=== PATIENT | male | born 1945 | race Two or more races ===

== ENCOUNTER 2018-10-08 19:19 | Emergency (ER) | payer OTHER ==
[~2018-10-08] VITALS: Ht 180.3 cm; Wt 83.9 kg
[2018-10-08] MEDS ORDERED: ONDANSETRON IV *ER 4 MG/2 ML VIAL IV ONE (19:30)
[2018-10-08] MEDS ORDERED: DIPHENOXYLATE HCL/ATROP SULF TABLET PO ONE (19:30)
[2018-10-08 19:48] LABS: *OCCULT BLOOD STOOL NEGATIVE (NEGATIVE)
[2018-10-08 19:49] LABS: BASOPHILS # (AUTO) 0.1 K/uL (0.0-8.0); BASOPHILS % (AUTO) 1.3 % (0.0-2.0); EOSINOPHILS # (AUTO) 0.8 K/uL (0.0-0.7); EOSINOPHILS % (AUTO) 11.2 % (0.0-7.0); HEMATOCRIT 39.4 % (36.7-47.1); HEMOGLOBIN 12.7 g/dL (12.5-16.3); LYMPHOCYTES # (AUTO) 1.7 K/uL (20.0-40.0); LYMPHOCYTES % (AUTO) 23.4 % (20.5-51.5); MEAN CORPUSCULAR HEMOGLOBIN 30.2 uug (23.8-33.4); MEAN CORPUSCULAR HGB CONC 32 g/dL (32.5-36.3); MEAN CORPUSCULAR VOLUME 93.9 fL (73.0-96.2); MONOCYTES # (AUTO) 0.7 K/uL (2.0-10.0); MONOCYTES % (AUTO) 9.1 % (0.0-11.0); PLATELET COUNT (AUTO) 127 K/uL (152-348); RED BLOOD CELL COUNT(AUTO) 4.19 MIL/uL (4.06-5.63); WHITE BLOOD COUNT (AUTO) 7.3 K/uL (3.6-10.2)
[2018-10-08] MEDS ORDERED: DIPHENOXYLATE HCL/ATROP SULF TABLET ONE (19:49)
[2018-10-08] MEDS ORDERED: ONDANSETRON 4 MG/2 ML VIAL ONE (19:49)
[2018-10-08 19:57] LABS: CARBON DIOXIDE 29 mmol/L (21-32); CHLORIDE 107 mmol/L (98-107); CREATININE 1.1 mg/dL (0.6-1.3); GLUCOSE 131 mg/dL (74-106); POTASSIUM 4.7 mmol/L (3.5-5.1); UREA NITROGEN, BLOOD 16 mg/dL (7-18)
[2018-10-08 20:04] LABS: ALANINE AMINOTRANSFERASE 29 U/L (16-63); ALKALINE PHOSPHATASE 98 U/L (50-136); ASPARTATE AMINOTRANSFERASE 14 U/L (15-37); BILIRUBIN,DIRECT 0.3 mg/dL (0.0-0.2); BILIRUBIN,TOTAL 0.9 mg/dL (0.2-1.0); LIPASE 237 U/L (73-393); TOTAL PROTEIN, SERUM 7.7 g/dL (6.4-8.2)
[2018-10-08] MEDS ORDERED: CARV6.252 PO (20:10)
[2018-10-08] MEDS ORDERED: METF-442 PO (20:10)
[2018-10-08] MEDS ORDERED: BUSP10TA3 PO (20:10)
[2018-10-08] MEDS ORDERED: FURO40TA5 PO (20:10)
[2018-10-08] MEDS ORDERED: ASPI81TA31 PO (20:10)
[2018-10-08] MEDS ORDERED: LISI10TA5 PO (20:10)
[2018-10-08] MEDS ORDERED: ATOR80TA PO (20:10)
[2018-10-08] MEDS ORDERED: DULO20CA PO (20:10)
[2018-10-08] MEDS ORDERED: MIRT30TA7 PO (20:10)
--- NOTE | 2018-10-08 20:53 | NUR ---
[facility] for transport back to [facility]. ETA 2 hrs @ [id number]. Trip#[id number]
--- NOTE | 2018-10-08 22:01 | NUR ---
Pt is resting comfortably in bed. Pt aware pending transport back to [facility]. Appears in no apparent distress.
--- NOTE | 2018-10-08 23:15 | NUR ---
IV removed. Catheter intact and site benign. Pressure and 4x4 gauze applied to site. No bleeding noted.
--- NOTE | 2018-10-08 23:22 | NUR ---
[facility] here to transport pt back to [facility]. Patient discharged to home in stable conditon. Written and verbal after care instructions given. Patient verbalizes understanding of instructions. No acute distress noted. All belongings with patient. Vital signs stable.
[2018-10-08 23:24] VITALS: BP 141/75
== END 2018-10-08 23:24 | disposition home or self-care (01) ==
LOC: ER 19:23
DX: R19.7 Diarrhea, unspecified (principal); R11.0 Nausea; I10 Essential (primary) hypertension; I25.10 Atherosclerotic heart disease of native coronary artery without angina pectoris; E78.5 Hyperlipidemia, unspecified; I48.91 Unspecified atrial fibrillation; E11.9 Type 2 diabetes mellitus without complications; Z90.49 Acquired absence of other specified parts of digestive tract; Z79.82 Long term (current) use of aspirin; Z79.899 Other long term (current) drug therapy
CPT/HCPCS: 36415; 74176; 80048; 80076; 82270; 83690; 84484; 85025; 85730; 93005; 96374; 99284; J2405; 70030-TC; A4663

== ENCOUNTER 2019-02-12 11:52 | Inpatient (IN) | payer OTHER ==
[~2019-02-12] VITALS: Ht 167.6 cm; Wt 79.8 kg
[~2019-02-12 11:52] MED LIST: ASPI81TA31 PO; ATOR80TA PO; BUSP10TA3 PO; CARV6.252 PO; DULO20CA PO; FURO40TA5 PO; LISI10TA5 PO; METF-442 PO; MIRT30TA7 PO
[2019-02-12] MEDS ORDERED: NEOMY/BACITRA/POLYMYXIN B OINT UD PACKET TP ONE ×2 (12:15→12:21)
[2019-02-12 12:37] LABS: CREATININE 1.2 mg/dL (0.6-1.3); POTASSIUM 3.8 mmol/L (3.5-5.1)
[2019-02-12 12:40] LABS: BASOPHILS # (AUTO) 0.1 K/uL (0.0-8.0); BASOPHILS % (AUTO) 1.3 % (0.0-2.0); EOSINOPHILS # (AUTO) 0.8 K/uL (0.0-0.7); EOSINOPHILS % (AUTO) 11.4 % (0.0-7.0); HEMATOCRIT 35.5 % (36.7-47.1); HEMOGLOBIN 11.5 g/dL (12.5-16.3); LYMPHOCYTES # (AUTO) 1.4 K/uL (20.0-40.0); LYMPHOCYTES % (AUTO) 20.6 % (20.5-51.5); MEAN CORPUSCULAR HEMOGLOBIN 31.9 uug (23.8-33.4); MEAN CORPUSCULAR HGB CONC 32 g/dL (32.5-36.3); MEAN CORPUSCULAR VOLUME 98.9 fL (73.0-96.2); MONOCYTES # (AUTO) 0.9 K/uL (2.0-10.0); MONOCYTES % (AUTO) 12.2 % (0.0-11.0); NEUTROPHILS # (AUTO) 3.8 K/uL (1.8-8.9); NEUTROPHILS % (AUTO) 54.5 % (38.5-71.5); PLATELET COUNT (AUTO) 176 K/uL (152-348); RED BLOOD CELL COUNT(AUTO) 3.59 MIL/uL (4.06-5.63)
[2019-02-12 12:42] LABS: BILIRUBIN,DIRECT 0.1 mg/dL (0.0-0.2); BILIRUBIN,TOTAL 0.5 mg/dL (0.2-1.0)
[2019-02-12] MEDS ORDERED: CYAN-51 PO (12:49)
[2019-02-12] MEDS ORDERED: AMIO200T4 PO (12:49)
[2019-02-12] MEDS ORDERED: NITR0.4T SL (12:49)
[2019-02-12] MEDS ORDERED: ATOR40TA PO (12:49)
[2019-02-12] MEDS ORDERED: CHOL10002 PO (12:49)
[2019-02-12] MEDS ORDERED: ASPIRIN 81 MG TAB.CHEW PO ONE (13:30)
[2019-02-12] MEDS ORDERED: ASPIRIN 81 MG TAB.CHEW ONE (13:31)
[2019-02-12 16:30] VITALS: BP 135/85
[2019-02-12] MEDS ORDERED: MAGNESIUM HYDROXIDE 30 ML LIQUID UDC PO PRN (18:45)
[2019-02-12] MEDS ORDERED: Z GUARD REMEDY PASTE 57 GM TUBE TOP PRN (18:45)
[2019-02-12] MEDS ORDERED: DEXTROSE 50% 50 ML DISP.SYRIN IV PRN (18:45)
[2019-02-12] MEDS ORDERED: ONDANSETRON 4 MG/2 ML VIAL IV PRN (18:45)
[2019-02-12 20:00] VITALS: BP 130/64
[2019-02-12] MEDS: BLOOD SUGAR DIAGNOSTIC 1 EACH STRIP VI SCH (20:48)
[2019-02-12] MEDS: MIRTAZAPINE 15 MG TABLET PO SCH (20:48)
[2019-02-12] MEDS: ATORVASTATIN 40 MG TABLET PO SCH (20:48)
[2019-02-12] MEDS ORDERED: Medication Not On Formulary EA (Mirtazapine 30 MG) PO SCH (21:00)
[2019-02-12 22:16] LABS: *BILIRUBIN,URIN NEGATIVE (NEGATIVE); *BLOOD, URINE NEGATIVE (NEGATIVE); *CLARITY,URINE CLEAR (CLEAR); *COLOR,URINE YELLOW (YELLOW); *KETONES,URINE NEGATIVE (NEGATIVE); *UROBILINOGEN,URINE 0.2 E.U./dl (NORMAL); LEUKOCYTE ESTERASE ,URINE NEGATIVE (NEGATIVE); NITRITE, URINE NEGATIVE (NEGATIVE); PH,URINE 5.5 (5.0-8.0); UGLUCOSE NEGATIVE (NEGATIVE)
[2019-02-12] MEDS: ACETAMINOPHEN 325 MG TABLET PO PRN (22:57)
[2019-02-13] VITALS: BP 138/56
[2019-02-13 04:00] VITALS: BP 113/71
[2019-02-13] MEDS: BLOOD SUGAR DIAGNOSTIC 1 EACH STRIP VI SCH ×4 (06:32→21:10)
[2019-02-13 07:29] LABS: BASOPHILS # (AUTO) 0.1 K/uL (0.0-8.0); EOSINOPHILS % (AUTO) 14.9 % (0.0-7.0); HEMATOCRIT 34.9 % (36.7-47.1); HEMOGLOBIN 11.6 g/dL (12.5-16.3); LYMPHOCYTES # (AUTO) 1.6 K/uL (20.0-40.0); LYMPHOCYTES % (AUTO) 24.6 % (20.5-51.5); MEAN CORPUSCULAR HEMOGLOBIN 32.5 uug (23.8-33.4); MEAN CORPUSCULAR HGB CONC 33 g/dL (32.5-36.3); MEAN CORPUSCULAR VOLUME 98.1 fL (73.0-96.2); MONOCYTES # (AUTO) 0.7 K/uL (2.0-10.0); MONOCYTES % (AUTO) 10.6 % (0.0-11.0); NEUTROPHILS # (AUTO) 3.1 K/uL (1.8-8.9); NEUTROPHILS % (AUTO) 47.9 % (38.5-71.5); PLATELET COUNT (AUTO) 164 K/uL (152-348); RED BLOOD CELL COUNT(AUTO) 3.55 MIL/uL (4.06-5.63); WHITE BLOOD COUNT (AUTO) 6.5 K/uL (3.6-10.2)
[2019-02-13 07:43] LABS: CARBON DIOXIDE 34 mmol/L (21-32); CHLORIDE 108 mmol/L (98-107); CHOLESTEROL 108 mg/dL (<200); CREATININE 1.1 mg/dL (0.6-1.3); GLUCOSE 97 mg/dL (74-106); HDL CHOLESTEROL 24 mg/dL (40-60); MAGNESIUM 1.8 mg/dL (1.8-2.4); PHOSPHOROUS 4.4 mg/dL (2.5-4.9); POTASSIUM 4.7 mmol/L (3.5-5.1); TRIGLYCERIDES 112 MG/DL (30-150); UREA NITROGEN, BLOOD 15 mg/dL (7-18)
[2019-02-13 07:52] LABS: THYROID STIMULATING HORMONE 2.771 mIU/mL (0.358-3.740)
[2019-02-13] MEDS ORDERED: Medication Not On Formulary EA (Metformin Hcl 1,000 MG) PO SCH (09:00)
[2019-02-13] MEDS: AMIODARONE HCL 200 MG TABLET PO SCH ×2 (09:25→18:12)
[2019-02-13] MEDS: DULOXETINE 20 MG CAPSULE.DR PO SCH (09:26)
[2019-02-13] MEDS: busPIRone 10 MG TABLET PO SCH ×2 (09:26→18:08)
[2019-02-13] MEDS: CHOLECALCIFEROL 1,000 UNIT TABLET PO SCH ×2 (09:26→18:07)
[2019-02-13] MEDS: CARVEDILOL 6.25 MG TABLET PO SCH ×2 (09:28→18:08)
[2019-02-13] MEDS: FUROSEMIDE 40 MG TABLET PO SCH (09:28)
[2019-02-13] MEDS: METFORMIN HCL 500 MG TABLET PO SCH ×2 (09:29→18:06)
[2019-02-13] MEDS: CYANOCOBALAMIN 1,000 MCG TABLET PO SCH (09:29)
[2019-02-13 11:05] VITALS: BP 126/77
[2019-02-13] MEDS: INSULIN REGULAR, HUMAN 300 UNIT/3 ML VIAL SQ PRN ×2 (12:39→18:16)
[2019-02-13] MEDS: ACETAMINOPHEN 325 MG TABLET PO PRN (14:03)
[2019-02-13 15:50] VITALS: BP 109/53
[2019-02-13] MEDS: ASPIRIN 81 MG TAB.CHEW PO SCH (18:07)
[2019-02-13 20:00] VITALS: BP 108/55
[2019-02-13] MEDS: ATORVASTATIN 40 MG TABLET PO SCH (21:11)
[2019-02-13] MEDS: MIRTAZAPINE 15 MG TABLET PO SCH (21:11)
[2019-02-14] VITALS: BP 116/64
[2019-02-14 04:00] VITALS: BP 114/61
[2019-02-14] MEDS: BLOOD SUGAR DIAGNOSTIC 1 EACH STRIP VI SCH ×4 (06:44→20:39)
[2019-02-14] MEDS ORDERED: IOHEXOL 350 100 ML INFUS..BTL ONE (07:29)
[2019-02-14] MEDS ORDERED: SWABABLE VALVE TRANSFER SET EA MC ONE (07:29)
[2019-02-14] MEDS ORDERED: IV NORMAL SALINE 250 ML IV ONE (07:29)
[2019-02-14] MEDS: METFORMIN HCL 500 MG TABLET PO SCH ×2 (08:00→18:00)
[2019-02-14] MEDS: CHOLECALCIFEROL 1,000 UNIT TABLET PO SCH ×2 (10:23→18:05)
[2019-02-14] MEDS: CARVEDILOL 6.25 MG TABLET PO SCH ×2 (10:24→18:05)
[2019-02-14] MEDS: CYANOCOBALAMIN 1,000 MCG TABLET PO SCH (10:24)
[2019-02-14] MEDS: ACETAMINOPHEN 325 MG TABLET PO PRN (10:24)
[2019-02-14] MEDS: busPIRone 10 MG TABLET PO SCH ×2 (10:24→18:06)
[2019-02-14] MEDS: AMIODARONE HCL 200 MG TABLET PO SCH ×2 (10:25→18:06)
[2019-02-14] MEDS: ASPIRIN 81 MG TAB.CHEW PO SCH (10:25)
[2019-02-14] MEDS: DULOXETINE 20 MG CAPSULE.DR PO SCH (10:25)
[2019-02-14] MEDS: FUROSEMIDE 40 MG TABLET PO SCH (10:25)
[2019-02-14 11:13] VITALS: BP 129/77
[2019-02-14] MEDS: INSULIN REGULAR, HUMAN 300 UNIT/3 ML VIAL SQ PRN ×2 (12:51→20:41)
[2019-02-14 15:17] VITALS: BP 121/65
[2019-02-14] MEDS: NITROGLYCERIN 0.4 MG/TAB BOTTLE SL PRN ×3 (16:04→17:11)
[2019-02-14 16:30] VITALS: BP 133/79
[2019-02-14] MEDS ORDERED: MORPHINE SULFATE 2 MG/1 ML DISP.SYRIN ONE (17:40)
[2019-02-14] MEDS ORDERED: MORPHINE SULFATE 2 MG/1 ML DISP.SYRIN IV ONE (17:45)
[2019-02-14 19:30] VITALS: BP 133/76
[2019-02-14] MEDS: MIRTAZAPINE 15 MG TABLET PO SCH (20:34)
[2019-02-14] MEDS: ATORVASTATIN 40 MG TABLET PO SCH (20:34)
[2019-02-15 00:02] VITALS: BP 129/72
[2019-02-15 04:00] VITALS: BP 127/83
[2019-02-15] MEDS: BLOOD SUGAR DIAGNOSTIC 1 EACH STRIP VI SCH ×2 (06:37→11:38)
[2019-02-15 06:50] LABS: ALANINE AMINOTRANSFERASE 14 U/L (16-63); ALKALINE PHOSPHATASE 81 U/L (50-136); ASPARTATE AMINOTRANSFERASE 9 U/L (15-37); BILIRUBIN,TOTAL 0.5 mg/dL (0.2-1.0); CARBON DIOXIDE 33 mmol/L (21-32); CHLORIDE 108 mmol/L (98-107); CREATININE 1.1 mg/dL (0.6-1.3); GLUCOSE 97 mg/dL (74-106); MAGNESIUM 1.8 mg/dL (1.8-2.4); PHOSPHOROUS 4.3 mg/dL (2.5-4.9); POTASSIUM 4.5 mmol/L (3.5-5.1); TOTAL PROTEIN, SERUM 6.9 g/dL (6.4-8.2); UREA NITROGEN, BLOOD 19 mg/dL (7-18)
[2019-02-15 06:59] LABS: BASOPHILS # (AUTO) 0.1 K/uL (0.0-8.0); BASOPHILS % (AUTO) 1.4 % (0.0-2.0); EOSINOPHILS % (AUTO) 13.1 % (0.0-7.0); HEMATOCRIT 35.7 % (36.7-47.1); HEMOGLOBIN 11.8 g/dL (12.5-16.3); LYMPHOCYTES # (AUTO) 1.7 K/uL (20.0-40.0); MEAN CORPUSCULAR HEMOGLOBIN 31.9 uug (23.8-33.4); MEAN CORPUSCULAR HGB CONC 33 g/dL (32.5-36.3); MEAN CORPUSCULAR VOLUME 96.8 fL (73.0-96.2); MONOCYTES # (AUTO) 0.8 K/uL (2.0-10.0); MONOCYTES % (AUTO) 10.5 % (0.0-11.0); PLATELET COUNT (AUTO) 159 K/uL (152-348); RED BLOOD CELL COUNT(AUTO) 3.69 MIL/uL (4.06-5.63); WHITE BLOOD COUNT (AUTO) 7.6 K/uL (3.6-10.2)
[2019-02-15] MEDS: ASPIRIN 81 MG TAB.CHEW PO SCH (08:17)
[2019-02-15] MEDS: CHOLECALCIFEROL 1,000 UNIT TABLET PO SCH (08:18)
[2019-02-15] MEDS: CYANOCOBALAMIN 1,000 MCG TABLET PO SCH (08:18)
[2019-02-15] MEDS: busPIRone 10 MG TABLET PO SCH (08:18)
[2019-02-15] MEDS: AMIODARONE HCL 200 MG TABLET PO SCH (08:18)
[2019-02-15] MEDS: METFORMIN HCL 500 MG TABLET PO SCH (08:18)
[2019-02-15] MEDS: FUROSEMIDE 40 MG TABLET PO SCH (08:18)
[2019-02-15] MEDS: DULOXETINE 20 MG CAPSULE.DR PO SCH (08:19)
[2019-02-15] MEDS: CARVEDILOL 6.25 MG TABLET PO SCH (08:19)
[2019-02-15] MEDS ORDERED: APIX5TAB PO (08:27)
[2019-02-15] MEDS ORDERED: APIXABAN 5 MG TABLET PO SCH (09:00)
[2019-02-15] MEDS: INSULIN REGULAR, HUMAN 300 UNIT/3 ML VIAL SQ PRN (11:40)
[2019-02-15 11:56] VITALS: BP 125/77
[2019-02-17] MEDS ORDERED: METFORMIN HCL 500 MG TABLET PO SCH (08:00)
== END 2019-02-15 14:00 | DRG 47 ==
LOC: ER 11:52 → TELE3 15:22
PROVIDERS: ADMIT Internal Medicine; ATTEND Internal Medicine
DX: G45.9 Transient cerebral ischemic attack, unspecified (principal); I27.20 Pulmonary hypertension, unspecified; I48.91 Unspecified atrial fibrillation; I11.0 Hypertensive heart disease with heart failure; I50.42 Chronic combined systolic (congestive) and diastolic (congestive) heart failure; D64.9 Anemia, unspecified; E11.9 Type 2 diabetes mellitus without complications; M48.02 Spinal stenosis, cervical region; M50.21 Other cervical disc displacement, high cervical region; Z95.810 Presence of automatic (implantable) cardiac defibrillator; I25.5 Ischemic cardiomyopathy; E78.5 Hyperlipidemia, unspecified; I25.118 Atherosclerotic heart disease of native coronary artery with other forms of angina pectoris; Q21.0 Ventricular septal defect; R29.6 Repeated falls; I67.2 Cerebral atherosclerosis; Z86.73 Personal history of transient ischemic attack (TIA), and cerebral infarction without residual deficits; Z79.899 Other long term (current) drug therapy; Z79.84 Long term (current) use of oral hypoglycemic drugs; F32.9 Major depressive disorder, single episode, unspecified
CPT/HCPCS: 36415; 70030-TC; 70450; 70496; 71045; 72125; 83735; 84100; 84443; 85025; 85730; 86592; 87086; 93005; 93307; 93880; A4663; G0378; J1815; J2270; J7050; Q9967